=== PATIENT | female | born 1995 | race Caucasian/White ===

== ENCOUNTER → 2016-08-04 | Outpatient (CLI) | payer OTHER ==
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
== END | disposition home or self-care (01) ==
LOC: CRAD 12:48
DX: S99.921A Unspecified injury of right foot, initial encounter (principal); M79.671 Pain in right foot
CPT/HCPCS: 73620